=== PATIENT | male | born 1995 | race Caucasian/White ===

== ENCOUNTER 2017-08-27 07:56 | Observation (INO) | payer OTHER ==
[~2017-08-27] VITALS: Ht 180.3 cm; Wt 113.4 kg
[~2017-08-27 07:56] MED LIST: GUAIFENESIN-COD10 ML PO; MEDROL4 M2 PO; ZITHROMAX250 M2 PO
[2017-08-27 08:18] LABS: ABSOLUTE BASOPHIL COUNT 0.1 /CUMM (0.0-0.2); ABSOLUTE EOSINOPHIL COUNT 0.2 /CUMM (0.0-0.7); ABSOLUTE GRANULOCYTE CT 6.8 /CUMM (1.4-6.5); ABSOLUTE MONOCYTE COUNT 1.4 /CUMM (0.10-0.60); BASOPHIL % 0.5 % (0.0-2.0); EOSINOPHIL % 1.6 % (0-5); GRANULOCYTE % 54.3 % (42.2-75.2); HEMATOCRIT 46.2 % (42-52); MEAN CORPUSCULAR HGB 30.6 PG (27.0-31.0); MEAN CORPUSCULAR HGB CONC 33.8 G/DL (33.0-37.0); MEAN CORPUSCULAR VOLUME 90.4 FL (80.0-94.0); MEAN PLATELET VOLUME 9.8 FL (7.4-10.4); PLATELET COUNT 279 /CUMM (130-400); RBC DISTRIBUTION WIDTH 13.1 % (11.5-14.5); RED BLOOD CELL CT 5.11 /CUMM (4.70-6.10); WHITE BLOOD CELL COUNT 12.5 /CUMM (4.8-10.8)
[2017-08-27 08:27] LABS: PTT 28 SEC (25-37)
--- NOTE | 2017-08-27 08:50 | ED GENERAL ADULT ---
History of Present Illness General Chief Complaint: Laceration Procedure Stated Complaint: LAC TO L ARM Source: patient, family Exam Limitations: no limitations Vital Signs & Intake/Output Vital Signs & Intake/Output Vital Signs Date Time Temp Pulse Resp B/P B/P Pulse O2 O2 Flow FiO2 Mean Ox Delivery Rate 08/27 0840 97 19 152/76 99 Nasal 2.0L Cannula 08/27 0820 110 18 181/79 99 Nasal 2.0L Cannula 08/27 0812 99 Room Air 08/27 0811 110 18 149/81 99 Nasal 2.0L Cannula 08/27 0802 96.9 129 18 164/89 99 Room Air Allergies Coded Allergies: No Known Allergies (05/31/15) Reconcile Medications No Known Home Medications Triage Note: 22 Y/O MALE AMBULATORY INTO ER C/O LACERATION TO LAC AREA, CUT ON GLASS MILITARY COMMUNICATIONS SPECIALIST. PT COVERED IN BLOOD. TAKEN TO ROOM 6, MET IN ROOM BY DR CRUZ. DRESSING REMOVED BRIEFLY TO REVEAL LARGE LAC WITH SPURTING BLOOD. MANUAL B/P INFLATED BY DR CRUZ, BLEEDING CONTROLLED WITH PRESSURE. PT STATES A GLASS WAS BROKEN, HE REACHED FOR IT AND FELL ON WET FLOOR CAUSING LACERATION. PT DIAPHORETIC. PRESSURE DRESSING MAINTAINED. PLACED ON MONITOR, SINUS TACH 130'S. O2 PLACED AT 2L, SAT 99% 2 IVS EST BY ARNAV PAYNE. NORMAL SALINE INFUSING KEFZOL INFUSING. MED WITH MORPHINE PER APR. REMAINS AT BEDSIDE. SURGICAL TEAM PAGED. Triage Nurses Notes Reviewed? yes HPI: Patient is a 22-year-old male with past history of mild asthma, who presents today with a severe left upper extremity injury. He accidentally dropped a glass of water this morning causing it to smash on the ground. Unfortunately he slipped on a wet floor while trying to pick it up, and landed directly on it with his left antecubital fossa. He presented through triage screaming and holding his arm with significant blood loss apparent. He was brought immediately into a room and I assessed him rapidly. He has a large, deep laceration to his left antecubital fossa along the midline and another even larger along the medial aspect. I ordered CBCs, chemistries, type and cross, PRBCs, portable x-ray, Ancef, tetanus, morphine, and stat surgical consultation. Past History Travel History Traveled to [place] past 21 day No Medical History Any Pertinent Medical History? see below for history Neurological: NONE EENT: NONE Cardiovascular: NONE Respiratory: asthma Gastrointestinal: NONE Hepatic: NONE Renal: NONE Musculoskeletal: NONE Psychiatric: NONE Endocrine: NONE Blood Disorders: NONE Cancer(s): NONE MANUFACTURING PRODUCTION TECHNICIAN/Reproductive: NONE Tetanus Vaccine: 08/27/17 Surgical History Surgical History: N Psychosocial History What is your primary language [place] Tobacco Use: Quit >30 days ago Family History Hx Contributory? No Review of Systems Review of Systems Constitutional: Reports: see HPI. Comments Other than the features mentioned in history of present illness above, a detailed review of systems was not possible secondary to the patient's clinical condition and distracting injury Physical Exam Physical Exam General Appearance: alert, awake, severe distress Comments: HEENT: Inspection of the head reveals a normocephalic cranium with no signs of trauma. Ophtho: Extraocular muscles are intact. The sclera are noninjected, and there is no obvious discharge. Neck: No signs of trauma or asymmetry to the neck. Respiratory: The patient exhibits no signs of labored breathing. Cardiac: Diaphoretic, tachycardic, hypertensive. GI: No gross abdominal distention. : Deferred Extremities: Focused examination of the left upper extremity reveals a 4 cm laceration along the midline of the volar aspect of the antecubital fossa, with a 6 cm second laceration with fat extrusion medial to that. Both have brisk active bleeding, without pulsatile bleeding. Distally, the patient has fully intact pulse, motor, and sensory function. He is able to give an okay sign, thumbs up, and spread his fingers, as well as finger apposition with his thumb and the second through fifth digits. Neuro: The patient is oriented to person, place, time, and situation, with no obvious focal motor deficits. Cranial nerves II through XII are intact, and gait is normal. Behavioral: Panicked. Dermatologic: Dermatologic examination reveals no obvious rashes or exanthems. Core Measures ACS in differential dx? No CVA/TIA Diagnosis: No Sepsis Present: No Sepsis Focused Exam Completed? No Progress Differential Diagnoses I considered the following diagnoses in my evaluation of the patient: Laceration , venous injury, arterial injury, nerve injury, hemorrhagic anemia, hemorrhagic shock Plan of Care: Orders Procedure Date/time Status Nothing by Mouth 08/27 L Active ED Holding Orders 08/28 839 Active Admit to inpatient 08/28 839 Active Code Status 08/28 839 Active LEUKOCYTE POOR (PACKED CELLS) 08/27 08 Active XRY-ELBOW AP & LATERAL, LEFT 08/27 08 Active PARTIAL THROMBOPLASTIN TIME 08/27 800 Complete PROTHROMBIN TIME 08/27 800 Complete COMPREHENSIVE METABOLIC PANEL 08/27 800 Complete CBC WITHOUT DIFFERENTIAL 08/27 800 Active TYPE & SCREEN (NOT X-MATCH) 08/27 800 Active Current Medications Sig/Lorne Start time Last Medication Dose Stop Time Status Admin Sodium Chloride 1,000 ML BOLUS ONE 08/27 844 AC 08/27 (Normal Saline 0.9%) 08/28 943 0839 Sodium Chloride 1,000 ML BOLUS ONE 08/27 844 AC 08/27 (Normal Saline 0.9%) 08/27 0944 0848 Laboratory Tests 08/27/17 08: Anion Gap 23 H, Estimated GFR > 60, BUN/Creatinine Ratio 14.0, Glucose 131 H, Calcium 9.5, Total Bilirubin 0.7, AST 24, ALT 36, Alkaline Phosphatase 32, Total Protein 7.8, Albumin 4.7, Globulin 3.1, Albumin/Globulin Ratio 1.5, PT 12.0, INR 1.10, APTT 28, CBC w Diff MAN DIFF ORDERED, RBC 5.11, MCV 90.4, MCH 30.6, MCHC 33.8, RDW 13.1, MPV 9.8, Gran % 54.3, Lymphocytes % 32.3, Monocytes % 11.3 H, Eosinophils % 1.6, Basophils % 0.5, Absolute Granulocytes 6.8 H, Segmented Neutrophils Pending, Absolute Lymphocytes 4.0 H, Absolute Monocytes 1.4 H, Absolute Eosinophils 0.2, Absolute Basophils 0.1 Initial ED EKG: none Comments: We immediately obtained hemorrhage control through the use of a blood pressure cuff tourniquet and direct pressure with Surgicel and gauze. Surgical team spine at the bedside rapidly, first with the physician assistant manager retail and then the attending Dr. Blum. They established very quickly that the patient needed operative exploration and repair. He was prepped for the operating room and consented by surgery. Patient was typed and crossed and blood was ordered immediately upon arrival, but it had not yet arrived by the time of transport to the operating room. Surgery was okay with this and will give led intraoperatively. Hemoglobin came back normal, albeit this will likely drop with time. Transported to the OR in hemodynamically stable condition. Departure Departure Time of Disposition: 846 Disposition: STILL A PATIENT Condition: Stable Clinical Impression Primary Impression: Trauma Referrals: Unknown (PCP/Family) Departure Forms: Customer Survey General Discharge Information Prescriptions: Current Visit Scripts No Known Home Medications Critical Care Note Critical Care Note Critical Care Time: 30-74 min Comments: Critical care time spent > 50 minutes. The patient was suffering from a critical illness that acutely impairs one or more vital organ systems and there is a high probability of imminent or life threatening deterioration in the patient's condition. During this time I was personally involved in activities including hemorrhage control, consultation of surgery, initiation of blood transfusion, antibiotic coverage, hemodynamic stabilization, consulting multiple specialists , and decision making of high complexity to assess, manipulate, and support vital organ system failure (in this case, limb threatening left arterial trauma) and/or to prevent further life threatening deterioration of the patient's condition. The failure to initiate these interventions on an urgent basis would likely result in sudden, clinically significant or life threatening deterioration in the patient's condition.
--- NOTE | 2017-08-27 08:57 | RADIOLOGY REPORT ---
EXAMINATION: XR ELBOW, LEFT CLINICAL INFORMATION: Laceration in the antecubital fossa. Assess for fracture. COMPARISON: None TECHNIQUE: 2 views of the left elbow. FINDINGS: Evaluation is limited by nonstandard views and overlying hand. On the images available there is no discrete displaced fracture or evidence of dislocation. The radial head appears intact. The images available are nondiagnostic for effusion. There is some bandage material visualized, accounting for which no definitive radiodense foreign body. IMPRESSION: Limited nonstandard views without convincing fracture or dislocation. If there is continued clinical concern for left elbow pathology, consider standard views or cross-sectional imaging.
[2017-08-27 16:00] VITALS: BP 142/68
--- NOTE | 2017-08-27 16:02 | Operative Report ---
Operative/Inv Procedure Report Surgery Date: 08/27/17 Name of Procedure: Exploration of left antecubital laceration, repair of left brachial artery with reversed saphenous vein interposition bypass graft Pre-Operative Diagnosis: Arterial and venous deep vessel injury left arm after trauma from broken glass Post-Operative Diagnosis: Arterial and venous deep vessel injury left arm after trauma from broken glass Estimated Blood Loss: 50ml to 100ml Surgeon/Take Off Man: Kulwant ADLER,Solomon Hughes PA-C, Terence (asst.) Anesthesia: general endotracheal tube, local monitored anesthesi Urine Output: See chart Complications: None Condition: Stable to PACU Operative Indication: This is a 22-year-old male who was in his usual state of health until this morning. His girlfriend dropped a glass on the floor which was full of water. He slipped on the water and fell on the glass with an outstretched arm. This resulted in a laceration and significant hemorrhage from his left antecubital fossa. He was taken to the emergency room and presented with pulsatile bleeding from the left arm. An emergent ER consult was placed. He was not able to give an adequate exam from a neurovascular standpoint because he was in extremis at the time of evaluation. He was taken emergently to the OR due to hemorrhage. On our exam he had no Doppler signals in the left hand and no sensory function. Operative/Procedure Note Note: The patient was transported to the operating room. He consented for the procedure. A timeout was held in accordance with [facility] policy. Manual compression was being held in the left antecubital fossa during sterile prep of the left arm. After the prep was completed, pressure was relieved and no active bleeding was now noted. The transverse laceration in the antecubital fossa was then extended proximally into the medial portion of the arm in a curvilinear fashion. Upon dissection pulsatile bleeding was now noted. This was controlled and the brachial artery was clamped. The patient was bolused with 5000 units heparin. The incision was now extended distally and crossing veins and muscular traumatized vessels were ligated. The distal brachial artery was then isolated and noted to be bleeding. The artery itself had been transected. The distal part of the artery was now controlled. Attention was now turned to repair. The necrotic and damaged portion of the artery was trimmed back. The saphenous vein graft was then harvested from the left groin. This was done by making a small 4-5 cm incision in the medial thigh. Using Bovie electrocautery and a scalpel the vein was dissected free and excised from the left thigh after branches of the vein were ligated. The vein was then reversed and beveled appropriately. A proximal anastomosis was created with a running 6-0 Prolene suture. The clamp was then removed and pulsatile flow was now noted to the vein graft. The vein had also been dilated with heparin saline. Attention was now turned to the distal anastomosis. As also was created with a running Prolene suture in an end-to-end fashion. All occluding clamps were then removed and good pulsatile flow was noted into the distal brachial artery past the anastomosis. The artery having been flushed required only 1-2 sutures for control of hemostasis. Good pulsatile flow was now noted in the distal brachial artery again and the wounds were copiously irrigated. The patient had immediate return of capillary refill to the left hand and Doppler signals were now noted which were not seen previously. The hand was noted to be viable. The wounds were now irrigated and closed in layers in both the left antecubital site as well as the left groin. 2-0 and 3-0 Vicryl sutures were used and skin turner and nylon sutures used to close the skin. Sponge needle and instrument counts were correct. The wounds were then dressed with 4 x 4 and Tegaderm dressings. The patient tolerated the procedure well and was able to move his hand post procedure. He was transferred to the PACU extubated stable and awake.
--- NOTE | 2017-08-27 16:04 | Surg Short-stay <48hrs Dis Sum ---
Visit Information Visit Dates Admission Date: 08/27/17 Discharge Date: 08/28/17 Surgical Short Stay DC Summary Admission Diagnosis: Arterial and venous deep vessel injury left arm after trauma from broken glass Final Diagnosis: Arterial and venous deep vessel injury left arm after trauma from broken glass Procedure(s): Surgery Date: 08/27/17 Name of Procedure: Exploration of left antecubital laceration, repair of left brachial artery with reversed saphenous vein interposition bypass graft Summary/Significant Findings: Presented to the ED on 08/27/17 with an arterial and venous deep vessel injury left arm after trauma from broken glass. Bleeding was controlled in the ED by blood pressure cuff tourniquet and direct pressure until arrived and took him emergently to the operating room. performed xploration of left antecubital laceration, and repair of left brachial artery with reversed saphenous vein interposition bypass graft. The patient remained stable throughout his presentation and operation. He was admitted overnight for serial lab assessment and neurovascular checks. Pain control was transitioned from iv to oral medication as able. On post op day one he was stable for discharge home. Instructed to take aspirin daily for blood thinning effect. Instructed to contact Dr Blum's office immediately with any increased pain or numbness or cold extremities, sob, cp. Follow up in one week. Condition at Discharge: stable Discharge Disposition: home or self care Discharge instructions provided to patient/family: Yes Post discharge follow-up plan: follow up with within 5-7 days
--- NOTE | 2017-08-27 16:17 | Patient Discharge Instructions ---
Discharge Instructions General Discharge Information You were seen/treated for: Arterial and venous deep vessel injury left arm after trauma from broken glass You had these procedures: Surgery Date: 08/27/17 Name of Procedure: Exploration of left antecubital laceration, repair of left brachial artery with reversed saphenous vein interposition bypass graft Watch for these problems: fever>101.3, increased pain, increased redness/swelling/drainage from wounds, increased numbness/tingling or decreased temperature to hand/arm, dizziness, shortness of breath, chest pains Call Surgeon to remove: [place] No bath, but you may shower: Yes Other wound care: keep incision clean & dry Diet Continue normal diet: Yes Recommended Diet: Regular Activity Full Activity/No Limits: No Activity Self Limited: Yes Pounds, do NOT lift more than: 10 Other activity limits: no heavy lifting. no strenuous activity with operative extremities Acute Coronary Syndrome Inclusion Criteria At DC or during hospital stay patient has or had the following: ACS DIAGNOSIS No Discharge Core Measures Meds if any: Prescribed or Continued at Discharge Meds if any: NOT Prescribed or Continued at Discharge Congestive Heart Failure Inclusion Criteria At DC or during hospital stay patient has or had the following: CHF DIAGNOSIS No Discharge Core Measures Meds if any: Prescribed or Continued at Discharge Meds if any: NOT Prescribed or Continued at Discharge Cerebrovascular accident Inclusion Criteria At DC or during hospital stay patient has or had the following: CVA/TIA Diagnosis No Discharge Core Measures Meds if any: Prescribed or Continued at Discharge Meds if any: NOT Prescribed or Continued at Discharge Venous thromboembolism Inclusion Criteria VTE Diagnosis No VTE Type NONE VTE Confirmed by (Test) NONE Discharge Core Measures - Per Current guidelines, there needs to be overlap - treatment for the first 5 days of Warfarin therapy. - If discharged on Warfarin prior to 5 days of - overlap therapy, the patient will need to be - assessed for post discharge needs including - *Post discharge parental anticoagulation - *Warfarin and/or parental anticoagulation education - *Follow up date to check INR post discharge At least 5 days overlap therapy as Inpatient No Meds if any: Prescribed or Continued at Discharge Note: Overlap Therapy is Warfarin and Anticoagulant Meds if any: NOT Prescribed or Continued at Discharge
--- NOTE | 2017-08-27 17:07 | PN- Vascular Surgery ---
Subjective Subjective: POST-OP NOTE Reports soreness. Nauseous in PACU, but feeling better now. Denies numbness/ tingling/paresthesias. No dizziness. No shortness of breath. Due to void this afternoon. Objective Vital Signs and I&Os Vital Signs Date Time Temp Pulse Resp B/P B/P Pulse O2 O2 Flow FiO2 Mean Ox Delivery Rate 08/27 0840 97 19 152/76 99 Nasal 2.0L Cannula 08/27 0820 110 18 181/79 99 Nasal 2.0L Cannula 08/27 0812 99 Room Air 08/27 0811 110 18 149/81 99 Nasal 2.0L Cannula 08/27 0802 96.9 129 18 164/89 99 Room Air Intake & Output 08/27 1600 08/27 0800 08/27 0000 08/26 1600 08/26 0800 08/26 0000 Intake Total 1100 Output Total Balance 1100 Intake, IV 1100 Patient 250 lb Weight Weight Reported by Patient Measurement Method Physical Exam: General - alert & oriented x 3. comfortable. no acute distress. Lungs - clear bilaterally. no w/r/r. Cardiac - s1s2. reg Abdomen - soft. nontender. nondistended. Extremities - warm bilaterally. dopplerable radial pulse appreciated. cap refill <2 sec. sensation grossly equal b/l hands. 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 left elbow dressing with shaheed wrap compression, currently c/d/i. left groin dressing stained , but intact. palpable distal pulses b/l feet. Current Medications: Current Medications Sig/Lorne Start time Last Medication Dose Route Stop Time Status Admin Cefazolin Sodium 2 GM Q8H 08/27 1900 AC N/A 1 UNIT IV 08/28 0329 Cefazolin Sodium 1,000 MG ONCE ONE 08/27 0815 DC 08/27 IV 08/27 0816 0813 Cefazolin Sodium 0 .STK-MED ONE 08/27 0803 DC .ROUTE Dextrose/Sodium 1,000 ML .[id number] 08/27 1315 AC Chloride IV Morphine Sulfate 4 MG Q1P PRN 08/27 1315 AC IV Morphine Sulfate 4 MG ONCE ONE 08/27 0845 DC 08/27 IV 08/27 0846 0838 Morphine Sulfate 4 MG ONCE ONE 08/27 0845 DC 08/27 IV 08/27 0846 0838 Morphine Sulfate 0 .STK-MED ONE 08/27 0836 DC .ROUTE Morphine Sulfate 0 .STK-MED ONE 08/28 815 DC .ROUTE Morphine Sulfate 4 MG ONCE ONE 08/28 0715 DC 08/27 IV 08/28 815 08 Morphine Sulfate 0 .STK-MED ONE 08/27 08 DC .ROUTE Ondansetron HCl 4 MG Q6P PRN 08/27 1315 AC IV Ondansetron HCl 4 MG ONCE ONE 08/27 0845 DC 08/27 IV 08/27 0846 0839 Ondansetron HCl 0 .STK-MED ONE 08/27 08 DC .ROUTE Oxycodone/ 1 TAB Q4P PRN 08/27 1315 AC Acetaminophen PO Oxycodone/ 2 TAB Q4P PRN 08/27 1315 AC Acetaminophen PO Sodium Chloride 1,000 ML BOLUS ONE 08/27 844 DC 08/27 IV 08/27 0944 0839 Sodium Chloride 1,000 ML BOLUS ONE 08/27 0845 DC 08/27 IV 08/27 0944 0848 Tetanus/Diphtheria 0.5 ML ONCE ONE 08/27 814 DC 08/27 Toxoids Adsorbed IM 08/28 815 08 Results Last 48 Hours of Labs: Laboratory Tests 08/27 08 Chemistry Sodium (137 - 145 mmol/L) 142 Potassium (3.5 - 5.1 mmol/L) 3.8 Chloride (98 - 107 mmol/L) 101 Carbon Dioxide (22 - 30 mmol/L) 18 L Anion Gap (5 - 16) 23 H BUN (9 - 20 mg/dL) 14 Creatinine (0.7 - 1.2 mg/dL) 1.0 Estimated GFR (>60 ml/min) > 60 BUN/Creatinine Ratio (7 - 25 %) 14.0 Glucose (65 - 99 mg/dL) 131 H Calcium (8.4 - 10.2 mg/dL) 9.5 Total Bilirubin (0.2 - 1.3 mg/dL) 0.7 AST (17 - 59 U/L) 24 ALT (21 - 72 U/L) 36 Alkaline Phosphatase (< 127 U/L) 32 Total Protein (6.3 - 8.2 g/dL) 7.8 Albumin (3.5 - 5.0 g/dL) 4.7 Globulin (1.9 - 4.2 gm/dL) 3.1 Albumin/Globulin Ratio (1.1 - 2.2 %) 1.5 Coagulation PT (9.4 - 12.5 SEC) 12.0 INR (0.90 - 1.17) 1.10 APTT (25 - 37 SEC) 28 Hematology CBC w Diff MAN DIFF ORDERED WBC (4.8 - 10.8 /CUMM) 12.5 H RBC (4.70 - 6.10 /CUMM) 5.11 Hgb (14.0 - 18.0 G/DL) 15.6 Hct (42 - 52 %) 46.2 MCV (80.0 - 94.0 FL) 90.4 MCH (27.0 - 31.0 PG) 30.6 MCHC (33.0 - 37.0 G/DL) 33.8 RDW (11.5 - 14.5 %) 13.1 Plt Count (130 - 400 /CUMM) 279 MPV (7.4 - 10.4 FL) 9.8 Gran % (42.2 - 75.2 %) 54.3 Lymphocytes % (20.5 - 51.1 %) 32.3 Monocytes % (1.7 - 9.3 %) 11.3 H Eosinophils % (0 - 5 %) 1.6 Basophils % (0.0 - 2.0 %) 0.5 Absolute Granulocytes (1.4 - 6.5 /CUMM) 6.8 H Absolute Lymphocytes (1.2 - 3.4 /CUMM) 4.0 H Absolute Monocytes (0.10 - 0.60 /CUMM) 1.4 H Absolute Eosinophils (0.0 - 0.7 /CUMM) 0.2 Absolute Basophils (0.0 - 0.2 /CUMM) 0.1 Platelet Estimate (ADEQUATE) VERIFIED BY SMEAR Normocytic RBCs VERIFIED Normochromic RBCs VERIFIED Assessment/Plan Assessment/Plan This 22 year old male is POD#0 s/p exploration of left antecubital laceration, repair of left brachial artery with reversed saphenous vein interposition bypass graft, for arterial and venous deep vessel injury left arm after trauma from broken glass advance diet as tolerated iv tylenol / oxycodone / morphine prn pain aspirin 325mg x 1 now hep sc q8 to start in the morning continue neurovascular checks reji-operative ancef x 2 doses oob as tolerated f/u AM labs discussed above with Core Measures Venous Thromboembolism VTE Risk Factors Surgery No Mechanical VTE Prophylaxis d/t N/A MechProphylax Ordered No VTE Pharm Prophylaxis d/t NA PharmProphylax ordered
[2017-08-27 20:00] VITALS: BP 132/80
[2017-08-28 00:10] VITALS: BP 90/44
[2017-08-28 01:35] VITALS: BP 142/44
[2017-08-28 03:59] VITALS: BP 126/60
[2017-08-28 08:38] LABS: ABSOLUTE BASOPHIL COUNT 0 /CUMM (0.0-0.2); ABSOLUTE EOSINOPHIL COUNT 0 /CUMM (0.0-0.7); ABSOLUTE GRANULOCYTE CT 8.1 /CUMM (1.4-6.5); ABSOLUTE LYMPH COUNT 1.7 /CUMM (1.2-3.4); ABSOLUTE MONOCYTE COUNT 0.9 /CUMM (0.10-0.60); BASOPHIL % 0.4 % (0.0-2.0); EOSINOPHIL % 0.1 % (0-5); GRANULOCYTE % 75.3 % (42.2-75.2); MEAN CORPUSCULAR HGB 31.3 PG (27.0-31.0); MEAN CORPUSCULAR HGB CONC 34.7 G/DL (33.0-37.0); MEAN CORPUSCULAR VOLUME 90.3 FL (80.0-94.0); MEAN PLATELET VOLUME 9.9 FL (7.4-10.4); PLATELET COUNT 202 /CUMM (130-400); RBC DISTRIBUTION WIDTH 12.6 % (11.5-14.5); WHITE BLOOD CELL COUNT 10.7 /CUMM (4.8-10.8)
--- NOTE | 2017-08-28 08:42 | PN- Vascular Surgery ---
Subjective Subjective: Awake, alert Complains of some numbness in Left 4th/5th digits, also complaining of pain at surgical sites - relieved with meds Objective Vital Signs and I&Os Vital Signs Date Time Temp Pulse Resp B/P B/P Pulse O2 O2 Flow FiO2 Mean Ox Delivery Rate 08/28 0359 98.7 86 20 126/60 96 Room Air 08/28 0135 97.8 79 20 142/44 97 Room Air 08/28 0010 98.4 60 20 90/44 97 Room Air 08/27 2000 98.3 80 20 132/80 98 Nasal Cannula 08/27 1600 97.6 89 20 142/68 99 Room Air 08/27 0840 97 19 152/76 99 Nasal 2.0L Cannula Intake & Output 08/28 1600 08/28 0800 08/28 0000 08/27 1600 08/27 0800 08/27 0000 Intake Total 400 1100 Output Total Balance 400 1100 Intake, IV 300 1100 Intake, Oral 100 Patient 250 lb Weight Weight Reported by Patient Measurement Method Physical Exam: vss, afebrile General: alert and oriented times three LUE: warm, good cap refill, positive sensate, good 5/5 [place] throughout, dressed with SHEILA bandage - dressing is clean and dry, no palpable pulse -dopplerable radial and ulnar L groin: dressing dry, no surrounding hematoma, normosensate Assessment/Plan Assessment/Plan 22yo male admitted with brachial artery injury - repaired with left svg pod 1 doing well post op - pain is tolerable with meds requesting nicotine patch dopplerable pulses discussed with Dr Blum plan to dc home - follow up in one week, daily dry dressing changes beginning tomorrow Core Measures Venous Thromboembolism VTE Risk Factors Surgery No Mechanical VTE Prophylaxis d/t N/A MechProphylax Ordered No VTE Pharm Prophylaxis d/t NA PharmProphylax ordered
[2017-08-28 08:58] LABS: HEMATOCRIT 28.5 % (42-52); RED BLOOD CELL CT 3.16 /CUMM (4.70-6.10)
[2017-08-28] MEDS ORDERED: ASPIRIN EC325 M2 PO (09:25)
[2017-08-28] MEDS ORDERED: PERCOCET 5-3251 EACH PO (09:33)
[2017-08-28 10:58] VITALS: BP 130/60
[2017-08-28 14:47] VITALS: BP 130/60
[2017-09-01] MEDS ORDERED: PERCOCET 5-3251 EACH PO (21:00)
[2017-09-01] MEDS ORDERED: KEFLEX500 M1 PO (21:00)
== END 2017-08-28 16:15 ==
LOC: ERH 07:56 → 2NA 12:55 → PACUH 12:55 → 2NA 13:11 → ENRESERV 13:20 → ENTRNSPT 15:30 → EDTRNSPT 15:40 → EDTRNSPTSTS 15:40 → 2NA 15:44 → CMPTRNSPT 16:52 → ENPENDDIS 08-28 09:26 → 2NA 08-28 16:15
PROVIDERS: Emergency Medicine; Physician Assistant
DX: S45.112A Laceration of brachial artery, left side, initial encounter (principal); S41.122A Laceration with foreign body of left upper arm, initial encounter; W01.110A Fall on same level from slipping, tripping and stumbling with subsequent striking against sharp glass, initial encounter; Y92.019 Unspecified place in single-family (private) house as the place of occurrence of the external cause
CPT/HCPCS: 2NAP; 6030; 36592; 73070-LT; 82436; 86920; 87086; 90471; 96372; 96374; 96375; 96376; 99291; G0378; J0131; J0690; J1100; J1170; J1630; J1644; J2250; J2405; J2440; J2550; J3010; J3490; J7042; P9016